=== PATIENT | female | born 1950 | race Two or more races ===

== ENCOUNTER 2023-04-17 11:39 | Emergency (ER) | payer MEDICAID, MEDICARE ==
[~2023-04-17] VITALS: Ht 162.6 cm; Wt 60.8 kg
[~2023-04-17 11:39] MED LIST: Aspirin PO; DOCU-270 PO; LISI10TA30 PO; METF-441 PO; SIMV20TA2 PO
[2023-04-17] MEDS ORDERED: CYCL5TAB PO (12:49)
[2023-04-17] MEDS ORDERED: LIDO30AD10 TP (12:49)
[2023-04-17] MEDS ORDERED: IBUP-1955 PO (12:49)
[2023-04-17 14:15] VITALS: BP 122/66; TEMP 98.2; O2SAT 99
== END 2023-04-17 14:15 | disposition home or self-care (01) ==
LOC: ER 11:54
DX: S20.211A Contusion of right front wall of thorax, initial encounter (principal); S09.90XA Unspecified injury of head, initial encounter; I10 Essential (primary) hypertension; E11.9 Type 2 diabetes mellitus without complications; W01.0XXA Fall on same level from slipping, tripping and stumbling without subsequent striking against object, initial encounter; Y93.89 Activity, other specified; Y92.89 Other specified places as the place of occurrence of the external cause; Y99.8 Other external cause status
CPT/HCPCS: 70450-TC; 71100-TC

== ENCOUNTER 2025-01-04 11:50 | Emergency (ER) | payer MEDICARE, OTHER ==
[~2025-01-04] VITALS: Ht 160 cm; Wt 63.5 kg
[~2025-01-04 11:50] MED LIST changes: +CYCL5TAB PO; +IBUP-1955 PO; +LIDO30AD10 TP
[2025-01-04] MEDS ORDERED: IBUPROFEN 600 MG TABLET ONE (12:17)
[2025-01-04] MEDS ORDERED: CYCLOBENZAPRINE 10 MG TABLET ONE (12:17)
[2025-01-04] MEDS: CYCLOBENZAPRINE 10 MG TABLET PO ONE (12:18)
[2025-01-04] MEDS: IBUPROFEN 600 MG TABLET PO ONE (12:19)
[2025-01-04] MEDS ORDERED: CYCL5TAB PO (13:42)
[2025-01-04] MEDS ORDERED: KETO10TA2 PO (13:42)
[2025-01-04 14:44] VITALS: BP 160/160; TEMP 98.5; O2SAT 100
== END 2025-01-04 13:55 | disposition home or self-care (01) ==
LOC: ER 12:02
DX: M54.9 Dorsalgia, unspecified (principal); I11.9 Hypertensive heart disease without heart failure; E11.9 Type 2 diabetes mellitus without complications; Z79.84 Long term (current) use of oral hypoglycemic drugs; Z79.899 Other long term (current) drug therapy; W18.39XA Other fall on same level, initial encounter; Y93.89 Activity, other specified; Y92.89 Other specified places as the place of occurrence of the external cause; Y99.8 Other external cause status
CPT/HCPCS: 72074-TC